=== PATIENT | male | born 1965 | race African-American/Black ===

== ENCOUNTER → 2019-09-12 16:25 | Outpatient (CLI) | payer OTHER, SELFPAY ==
--- NOTE | ~2019-09-12 | XR_ITS ---
EXAMINATION: XR forearm RT 2V DATE: 09/12/2019 16:52 INDICATION: Distal right forearm lump. TECHNIQUE: 2 views of right forearm on 3 radiographs were obtained. COMPARISON: None. FINDINGS: Bone alignment is normal. No fracture. There is mild elbow joint osteoarthritis. There is e nthesophytes at the medial and lateral humeral epicondyles. IMPRESSION: 1. Mild elbow joint osteoarthritis. Reviewed, dictated and finalized at location A. [employer] ASST
== END ==
PROVIDERS: PCP Nurse Practitioner Family; Visit Provider Nurse Practitioner Family
DX: M19.021 Primary osteoarthritis, right elbow (principal)
CPT/HCPCS: 73090

== ENCOUNTER 2019-12-27 11:34 | Observation (INO) | payer OTHER, SELFPAY ==
[2019-12-27] VITALS (7 sets, daily range): BP systolic 105–153; BP diastolic 73–88; PULSE 72–88; RESP 18–20; TEMP 36.2–36.9; O2SAT 99–100; BMI 24.6
--- NOTE | ~2019-12-27 | XR_ITS ---
EXAMINATION: XR chest 1V portable 12/27/2019 12:29 INDICATION: Left-sided facial numbness PROCEDURE: AP portable chest COMPARISON: No prior studies for comparison. FINDINGS: The lungs are clear. The cardiomediastinal silhouette is within normal limits. There are no pleural effusions. There is no pneumothorax suspected. IMPRESSION: 1: NO ACUTE CARDIOPULMONARY DISEASE. Reviewed, dictated and finalized at location A.
--- NOTE | ~2019-12-27 | US_ITS ---
EXAMINATION: US carotid duplex BI DATE: 12/27/2019 17:13 INDICATION: Cerebral infarcts involving the left temporal lobe and left frontoparietal region. TECHNIQUE: Grayscale, color Doppler, and pulsed Doppler images of the cervical carotid arteries were obtained. The degree of vessel stenosis is placed in one of the following categories: normal, <50%, 5 0-69%, >=70% but less than near-occlusion, near-occlusion, or total occlusion. Note that percent sten osis relative to normal distal artery lumen diameter is indirectly measured from velocity measurement s as described by Srinivasan, et al. Radiology 2003; 229:340-346. COMPARISON: Neck CTA 12/27/2019 FINDINGS: RIGHT: The right common carotid artery (CCA) peak systolic velocity (PSV) is 74 cm/s. The right internal car otid artery (ICA) PSV is 57 cm/s. The right ICA end-diastolic velocity (EDV) is 14 cm/s. The right IC A/CCA PSV ratio is 0.8. Grayscale and color Doppler images yield an estimate of <50% diameter reducti on from plaque in the ICA. There is antegrade flow in the right vertebral artery. LEFT: The left CCA PSV is 103 cm/s. The left ICA PSV is 53 cm/s. The left ICA EDV is 17 cm/s. The left ICA/ CCA PSV ratio is 0.5. Grayscale and color Doppler images yield an estimate of 0% diameter reduction f rom plaque in the ICA. There is antegrade flow in the left vertebral artery. IMPRESSION: 1. <50% stenosis in the right internal carotid artery. 2. Normal left internal carotid artery. Reviewed, dictated and finalized at location A.
--- NOTE | ~2019-12-27 | CT_ITS ---
EXAMINATION: CTA brain carotid DATE: 12/27/2019 14:11 CDT INDICATION: Left-sided facial numbness. TECHNIQUE: Computed tomographic angiography (CTA) of the head was performed without and with 100 mL O mnipaque-350 intravenous contrast. CTA of the neck was performed with intravenous contrast. The dose- length product was 1718.52 mGy-cm. Maximum intensity projection and volume rendered 3D-reconstruction s were created by the technologist on a separate workstation. COMPARISON: None. FINDINGS: HEAD CTA: Mild generalized atrophy. There are scattered mild periventricular and subcortical white ma tter changes, most likely related to small vessel ischemic disease (microangiopathy). Chronic left la cunar infarction. Chronic left parietal lobe infarction. No ventriculomegaly or midline shift. Basila r cisterns are patent. No depressed skull fractures. There is intracranial atherosclerosis. There is occlusion of the left middle cerebral artery with collateral vessels noted in the MCA distribution. T he anterior, posterior and right middle cerebral arteries are unremarkable. No evidence for aneurysm. There is atherosclerotic change in the cavernous segments of the carotid arteries. NECK CTA: The common, internal and external carotid arteries are patent. There is gas in the right in ternal jugular vein, likely from injection. No cervical lymphadenopathy. Thyroid gland is unremarkabl e. There is 0% stenosis of the proximal right internal carotid artery relative to normal distal artery l umen diameter (NASCET criteria). There is 0% stenosis of the proximal left internal carotid artery re lative to normal distal artery lumen diameter. 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 Findings likely chronic. 2: Chronic left lacunar and parietal lobe infarctions. 3: No significant stenosis in the internal carotid arteries. Reviewed, dictated and finalized at location A. 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 Findings likely chronic. 2: Chronic left lacunar and parietal lobe infarctions. 3: No significant stenosis in the internal carotid arteries.
--- NOTE | ~2019-12-27 | MR_ITS ---
EXAMINATION: MR brain/brain stem wo/w con DATE: 12/27/2019 20:02 INDICATION: Left facial numbness. Speech deficit. TECHNIQUE: Magnetic resonance imaging (MRI) of the brain and brainstem was performed without and with 15 mL MultiHance intravenous contrast. Sequences included sagittal and axial T1-weighted FSE, axial diffusion-weighted FS EPI, axial T2*-weighted GRE, axial T2-weighted FLAIR Propeller, and axial T2-we ighted Propeller. Postcontrast sequences included axial and coronal T1-weighted FSE. Apparent diffusi on coefficient (ADC) maps were created. COMPARISON: Head CT 12/27/2019 FINDINGS: There are old infarcts involving the left temporal lobe and left frontoparietal region. The re are areas of cystic encephalomalacia in the left frontal lobe deep white matter. There is increase d T2-weighted signal intensity in the left corticospinal tracts in the brainstem, consistent with chr onic Wallerian degeneration. There are areas of nonspecific increased T2-weighted signal intensity in the cerebral white matter and right basal ganglia. There is no acute infarct or intracranial hemorrh age. There is ex vacuo dilatation of left lateral ventricle. The paranasal sinuses are clear. The orb its are normal. The mastoid air cells are normal. IMPRESSION: 1. Old infarcts involving the left frontal, temporal, and parietal lobes. 2. Mild nonspecific cerebral white matter disease and disease of the right basal ganglia, which likel y represents chronic small vessel ischemic disease. Reviewed, dictated and finalized at location A. IMPRESSION: 1. Old infarcts involving the left frontal, temporal, and parietal lobes. 2. Mild nonspecific cerebral white matter disease and disease of the right basa l ganglia, which likely represents chronic small vessel ischemic disease.
--- NOTE | 2019-12-27 11:44 | ECG_ITS ---
Measurements Intervals [place] Rate: 82 P: 56 OR: 149 QRS: -18 QRSD: 93 T: 65 QT: 360 QTc: 423 Interpretive Statements SINUS RHYTHM RSR' IN V1 OR V2, CONSIDER RIGHT VENTRICULAR HYPERTROPHY OR RIGHT VCD BORDERLINE T WAVE ABNORMALITY- HIGH LATERAL LEADS BASELINE ARTIFACT- I, II BORDERLINE ECG Electronically Signed On 12-27-2019 16:13:53 CDT by Son Quinn D.O.
[2019-12-27 11:56] LABS: Basophils Percent Auto 0.2 % (0.2-1.2); Eosinophils Absolute Auto 0.1 K/mm3 (0-0.3); Eosinophils Percent Auto 1.7 % (0-4.4); Hematocrit 43.5 % (42.0-52.0); Hemoglobin 14.5 g/dL (14.0-18.0); Immature Granulocyte Absolute 0.01 K/mm3 (0.00-0.031); Immature Granulocyte Percent A 0.2 % (0-0.5); Lymphocytes Absolute Auto 3.04 K/mm3 (0.9-3.2); Lymphocytes Percent Auto 50.7 % (18.3-44.2); Mean Corpuscular HGB Conc 33.3 g/dl (32-36); Mean Corpuscular Hemoglobin 27.6 pg (26-34); Mean Corpuscular Volume 82.7 fl (80-100); Mean Platelet Volume 9.6 fl (7.4-10.4); Monocytes Absolute Auto 0.4 K/mm3 (0.1-0.6); Monocytes Percent Auto 7.2 % (2.6-8.5); Neutrophils Absolute Auto 2.4 K/mm3 (1.3-6.7); Platelet Count Result 202 k/mm3 (150-375); Red Blood Count 5.26 M/mm3 (4.6-6.20); Red Cell Distribution Width 13.3 % (11.5-14.5)
[2019-12-27 12:05] LABS: INR 1.1; Prothrombin Time 13.4 Seconds (11.1-14.7)
[2019-12-27 12:06] LABS: Partial Thromboplastin Time 24.8 SECONDS (22.3-36.8)
[2019-12-27 12:09] LABS: Blood Urea Nitrogen 10 mg/dL (9-20); Calcium 9.6 mg/dL (8.4-10.2); Carbon Dioxide 27 mmol/L (22-30); Chloride 105 mmol/L (98-107); Estimated CRCL calculation 87 ml/min; Estimated Glomerular Filt Rate > 60; Glucose 125 mg/dL (75-110); Potassium 3.7 mmol/L (3.4-5.0); Sodium 139 mmol/L (137-145)
[2019-12-27 12:20] LABS: Troponin I < 0.012 ng/mL (0.000-0.034)
[2019-12-27] MEDS: SODIUM CHLORIDE 0.9% IV 500 ML 999 ML IV CONT (13:01)
--- NOTE | 2019-12-27 15:05 | ED.GENADULT ---
HPI - General Adult General Chief complaint: Unspecified <DAYA Washburn Last Filed: 12/27/19 15:11> Stated complaint: left sided facial numbness/speech diff <DAYA Washburn Last Filed: 12/27/19 15:11> Time Seen by Provider: 12/27/19 12:40 <DAYA Washburn Last Filed: 12/27/19 15:11> Source: patient <DAYA Washburn Last Filed: 12/27/19 15:11> Mode of arrival: ambulatory <DAYA Washburn Last Filed: 12/27/19 15:11> Limitations: no limitations <DAYA Washburn Last Filed: 12/27/19 15:11> History of Present Illness HPI narrative: Patient is a 54-year-old male who presents to emergency department with family for evaluation of strokelike symptoms that have been present over the last week patient per family has had some changes in his speech patient in May had a stroke was evaluated at [facility]. Patient has been compliant with his medications to include aspirin. Patient denies any fall injury trauma recent illness. Patient has been complaining of some mild neck pain and left temporal parietal headache. Patient lives at home with family and is otherwise resting comfortably upon arrival <DAYA Washburn Last Filed: 12/27/19 15:11> Related Data Home medications: Home Medications Medication Instructions Recorded Confirmed albuterol sulfate INHALATION 08/09/19 aspirin 08/09/19 atorvastatin 08/09/19 lisinopril 08/09/19 memantine mg 08/09/19 metformin mg 08/09/19 methimazole 08/09/19 mirtazapine mg 08/09/19 risperidone mg 08/09/19 trazodone 08/09/19 <DAYA Washburn Last Filed: 12/27/19 15:11> Allergies/adverse reactions: Allergies Allergy/AdvReac Type Severity Reaction Status Date / Time No Known Allergies Allergy Verified 08/09/19 10:45 <DAYA Washburn Last Filed: 12/27/19 15:11> Review of Systems Review of Systems: All systems reviewed & are unremarkable except as noted in HPI and below <DAYA Washburn Last Filed: 12/27/19 15:11> [facility]LY [facility] Past Medical History Medical History: Medical History (Updated 12/27/19 @ 15:10 by Hayden Torres PA-C) CVA (cerebral vascular accident) Hyperthyroidism <Hayden Torres PA-C - Last Filed: 12/27/19 15:11> Social History Social History: Social History (Updated 12/27/19 @ 15:08 by Hayden Torres PA-C) Smoking status: Never smoker Gender identity (if verbalized by the patient): Male <Hayden Torres PA-C - Last Filed: 12/27/19 15:11> Exam Narrative: Exam Narrative: GENERAL: Well-appearing, well-nourished, and in no acute distress. HEAD: Normocephalic, atraumatic. EYES: PERRLA and EOMI. ENT: Nares clear, no rhinorrhea or epistaxis. Mucous membranes moist. Oropharynx without tonsillar hypertrophy exudate or other lesions. NECK: Supple. No adenopathy or masses. No carotid bruits or JVD CHEST: Clear to auscultation. No respiratory distress. No wheezes rales or rhonchi HEART: Regular rate and rhythm. No murmur heard. Normal peripheral pulses. ABDOMEN: Soft, nontender, nondistended EXTREMITIES: Normal range of motion. No edema. SKIN: Warm, dry, no rash. NEURO: No focal deficits. Alert and oriented x3. Cranial nerves II through XII grossly intact. Slightly garbled speech. Normal gyxbjy-jb-hnrs and tuzk-vg-ftjy. Cerebellar intact. Slight weakness on the left in comparison to the right on motor PSYCH: Normal mood and affect. <Hayden Torres PA-C - Last Filed: 12/27/19 15:11> Course Course Emergency Course: Patient in the room at this time resting comfortably in no distress will be given Plavix in the emergency department agreeing to stay in hospital <Hayden Torres PA-C - Last Filed: 12/27/19 15:11> BAND RIPSAW OPERATOR/PA Physician Supervision Attestation for Hayden Torres at 1530. Discussed the case and then saw the patient and his . She said his slurred speech st
[2019-12-27] MEDS: CLOPIDOGREL BISULFATE 75 MG TABLET PO (15:14)
[2019-12-27 15:24] LABS: Thyroid Stimulating Hormone Reflex < 0.015 uIU/mL (0.465-4.68)
--- NOTE | 2019-12-27 16:03 | PC.NURSE ---
This patient, Capo Friedman, was admitted to 2 Medical Room 251-01. Patient/family oriented to hospital policies and general routines including ID bracelet, bed and alarms, visiting hours, pain management, procedures, bathroom and other care routines, personal items, smoking policy, room service/diet, and visiting hours. Valuables list has been completed. Information on how to activate the Rapid Response Team has been discussed. Patient/Family are encouraged to report perceived risks to care and to ask questions if they do not understand what they are told or what they should do.
[2019-12-27 16:11] LABS: Free T4 Free Thyroxine Reflex 1.73 ng/dL (0.78-2.19)
[2019-12-27] MEDS: LACTATED RINGERS 1,000 ML 75 ML IV CONT (16:32)
--- NOTE | 2019-12-27 16:57 | PC.NURSE ---
Call to patient's daughter Ava and left voicemail to clarify patient's health history and review MRI safety screening form. Awaiting call back from daughter at this time.
[2019-12-27 18:15] LABS: Glucose Point of Care 108 (65-105)
--- NOTE | 2019-12-27 18:23 | PC.NURSE ---
Call to to update her on plan of care, clarified health history, and reviewed MRI screen form. All questions and concerns answered at this time.
[2019-12-27] MEDS: FAMOTIDINE 20 MG/2 ML VIAL IV PUSH (20:24)
[2019-12-27 20:35] LABS: Glucose Point of Care 117 (65-105)
--- NOTE | 2019-12-27 21:22 | PM.IMHP ---
H&P: HPI History of Present Illness Chief complaint: CVA Narrative: Capo Friedman is a 54 year old male who has had a past medical history of having a CVA. The patient stated that he had some right-sided weakness from his last stroke. He went to [facility] the last time. The patient is having difficulty talking. He has slow speech. He is having stroke-like symptoms that have been present over the last week. The patient did have some changes in his speech in May when he had a stroke. He has been taking aspirin daily. He also has a history of hyperthyroidism as Brien if he was taking his Tapazole and he really did not know. The patient was complaining of some mild neck pain and left temporoparietal headache earlier. He lives with his . Head and neck CTA was read as occlusion of the left middle cerebral artery with collateral vessels noted in the MCA distribution findings likely chronic. Chronic left lacunar and partial lobe infarcts. No significant stenosis in the internal carotid arteries. ED provider called [facility] neurology and it was recommended that the patient be placed on Plavix. Review of Systems Review of Systems: All systems reviewed & are unremarkable except as noted in HPI and below Constitutional: Constitutional: Reports as per HPI and Reports no additional constitutional complaints Eyes: Eyes: Reports as per HPI and Reports no additional eye complaints ENT: Reports system reviewed and no additional complaints, except as documented and Reports Normal hearing present Cardiovascular: Cardiovascular: Reports no additional cardiovascular complaints Respiratory: Respiratory: Reports no additional respiratory complaints and Reports no additional respiratory complaints Gastrointestinal: Gastrointestinal: Reports as per HPI and Reports no additional gastrointestinal complaints Musculoskeletal: Musculoskeletal: Reports no additional musculoskeletal complaints Integumentary/Breasts: Skin/Breast: Reports system reviewed and no additional complaints, except as docu and Reports as per HPI Neurologic: Reports system reviewed and no additional complaints, except as documented, Reports as per HPI and Reports Normal hearing present Psychiatric: Psychiatric: Reports no additional psychiatric complaints and Reports as per HPI Endocrine: Endocrine: Reports no additional endocrine complaints Hematologic/Lymphatic: Hematologic/Lymphatic: Reports no additional hematologic/lymphatic complaints Allergic/Immunologic: Allergic/Immunologic: Reports no additional allergic/immunologic complaints [facility] Past Medical History Medical History (Updated 12/27/19 @ 21:27 by Angelika Cali NP) CVA (cerebral vascular accident) Depression with anxiety DM2 (diabetes mellitus, type 2) Hyperlipidemia Hyperthyroidism Surgical History Surgical History (Updated 12/27/19 @ 21:27 by Angelika Cali NP) No pertinent past surgical history Family History Family History Son No problems noted. Sibling Asthma Grandparent Cerebrovascular accident Sibling Hypertension Social History Social History (Updated 12/27/19 @ 21:29 by Angelika Cali NP) Social History: The patient lives with his and he is disabled. He has 2 children. Patient quit smoking when he had his stroke in May. His is the durable power real estate attorney for healthcare and he is a full code. He denies any marijuana or drug use. Smoking packs per day: 1.5 Smoking cigarettes per day: 30.0 Years smoked: 35 Smoking pack-years: 52.50 Smoking status: Former smoker Tobacco type: cigarettes Alcohol intake: former Drinks per week: 5 Substance use type: does not use Living arrangements: with family Occupation/Education: other Gender identity (if verbalized by the patient): Male Spiritual care concerns: No Meds Home Medications and Allergie
[2019-12-27] MEDS: risperiDONE 1 MG TABLET PO (22:57)
[2019-12-27] MEDS: MIRTAZAPINE 7.5 MG TABLET PO (22:57)
[2019-12-28] VITALS (10 sets, daily range): BP systolic 121–126; BP diastolic 68–81; PULSE 70–84; RESP 17–18; TEMP 36.7–37.2; O2SAT 99–100
[2019-12-28 05:24] LABS: Basophils Percent Auto 0.2 % (0.2-1.2); Eosinophils Absolute Auto 0.1 K/mm3 (0-0.3); Eosinophils Percent Auto 2.3 % (0-4.4); Hematocrit 37.7 % (42.0-52.0); Hemoglobin 12.5 g/dL (14.0-18.0); Immature Granulocyte Absolute 0.01 K/mm3 (0.00-0.031); Immature Granulocyte Percent A 0.2 % (0-0.5); Lymphocytes Absolute Auto 3.08 K/mm3 (0.9-3.2); Lymphocytes Percent Auto 53.8 % (18.3-44.2); Mean Corpuscular HGB Conc 33.2 g/dl (32-36); Mean Corpuscular Hemoglobin 27.5 pg (26-34); Mean Corpuscular Volume 82.9 fl (80-100); Mean Platelet Volume 9.5 fl (7.4-10.4); Monocytes Absolute Auto 0.5 K/mm3 (0.1-0.6); Monocytes Percent Auto 8.2 % (2.6-8.5); Neutrophils Percent Auto 35.3 % (45.5-73.1); Platelet Count Result 172 k/mm3 (150-375); Red Blood Count 4.55 M/mm3 (4.6-6.20); Red Cell Distribution Width 13.2 % (11.5-14.5); White Blood Count 5.7 K/mm3 (4.5-10.0)
[2019-12-28 05:31] LABS: Blood Urea Nitrogen 6 mg/dL (9-20); Carbon Dioxide 30 mmol/L (22-30); Chloride 107 mmol/L (98-107); Estimated CRCL calculation 109 ml/min; Estimated Glomerular Filt Rate > 60; Glucose 79 mg/dL (75-110); Potassium 3.9 mmol/L (3.4-5.0); Sodium 140 mmol/L (137-145)
[2019-12-28 05:35] LABS: Hemoglobin A1C 5.8 % (<5.7)
--- NOTE | 2019-12-28 06:00 | ECHO_ITS ---
Patient Info Name: Capo Friedman Age: 54 years : 1965 Gender: Male Ht: 70 in Wt: 171 lbs BSA: 1.96 m2 HR: 77 bpm BP: 105 / 80 mmHg Heart Rhythm: Sinus Rhythm Technical Quality: Good Exam Date: 12/28/2019 2:56 PM Exam Location: [facility] Patient Status: Outpatient Admit Date: 12/27/2019 Staff Ordering Physician: Hayden Torres PA-C Steam Conditioning Operator: Erasto Bustillo RDCS, RT Attending Provider: Torri Boyd PA-C Referring Physician: Brian JOSHUA; Exam Type: CA echo doppler color flow Study Info Indications I63.219 - Cerebral infarction due to unspecified occlusion or stenosis of unspecified vertebral arteries Complete two-dimensional, color flow and Doppler transthoracic echocardiogram is performed. Summary 1. Right ventricular chamber dimension is mildly enlarged. 2. There is mild aortic valve regurgitation. 3. Left ventricular chamber dimension is normal. 4. Left ventricular systolic function is normal, estimated at 65-70%. 5. There is no increased left ventricular wall thickness. 6. The left ventricular diastolic function is abnormal. 7. Global longitudinal strain is normal at -18 %. 8. Atrial septum is grossly normal with this is not a definitive study for analysis of shunting. Left Ventricle Left ventricular chamber dimension is normal. Left ventricular systolic function is normal, estimated at 65-70%. There is no increased left ventricular wall thickness. The left ventricular diastolic function is abnormal. Global longitudinal strain is normal at -18 %. Right Ventricle Right ventricular chamber dimension is mildly enlarged. Right ventricular systolic function is normal. Left Atria Left atrial chamber dimension is normal. Right Atria Right atrial chamber dimension is normal. Atrial Septum Intact interatrial septum visualized by color flow imaging. Atrial septum is grossly normal with this is not a definitive study for analysis of shunting. Aortic Valve The aortic valve is trileaflet. There is mild aortic valve sclerosis. There is no aortic valve stenosis. There is mild aortic valve regurgitation. Pulmonic Valve The pulmonic valve is not well visualized. There is no pulmonic valve stenosis. There is trace pulmonic regurgitation. Mitral Valve The mitral valve has normal leaflets. There is no mitral valve stenosis. There is trace mitral valve regurgitation. Tricuspid Valve The tricuspid valve leaflets are normal. There is no significant tricuspid valve stenosis. There is trace tricuspid valve regurgitation. Pericardium/Pleural The pericardium appears normal. There is no pericardial effusion. Inferior Vena Cava Normal inferior vena cava with >50% collapse upon inspiration consistent with normal right atrial pressure, 5 mmHg. Aorta The aortic root size at the sinus of Valsalva is mildly dilated. Left Ventricular Outflow Tract Name Value Normal LVOT 2D LVOT Diameter 2.0 cm LVOT Doppler LVOT Peak Gradient 5 mmHg LVOT Mean Gradient 2 mmHg LVOT VTI
[2019-12-28] MEDS: LACTATED RINGERS 1,000 ML 75 ML IV CONT (06:51)
[2019-12-28 08:35] LABS: Glucose Point of Care 70 (65-105)
[2019-12-28] MEDS: ATORVASTATIN 40 MG TABLET PO (09:04)
[2019-12-28] MEDS: CLOPIDOGREL BISULFATE 75 MG TABLET PO (09:04)
[2019-12-28] MEDS: methiMAzole 5 MG TAB 10 MG PO ×2 (09:04→12:28)
[2019-12-28] MEDS: FAMOTIDINE 20 MG/2 ML VIAL IV PUSH ×2 (09:05→20:22)
[2019-12-28] MEDS: TRAZODONE HCL 50 MG TABLET PO (09:05)
[2019-12-28 11:57] LABS: Glucose Point of Care 97 (65-105)
--- NOTE | 2019-12-28 14:44 | PM.IMPN ---
Progress Note: A&P Assessment and Plan (1) Expressive aphasia: Code(s): R47.01 - Aphasia Status: Acute Assessment and Plan: Patient presented with worsening issues with his speech. He had a prior stroke in May 2019. 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 Findings likely chronic. Chronic left lacunar and parietal lobe infarctions. No significant stenosis in the internal carotid arteries. MRI showed Old infarcts involving the left frontal, temporal, and parietal lobes. Mild nonspecific cerebral white matter disease and disease of the right basal ganglia, which likely represents chronic small vessel ischemic disease. Carotid Dopplers show normal left internal carotid artery and less than 50% stenosis of the right internal carotid artery. The emergency room physician called [facility] about the patient's symptoms and they recommended starting him on Plavix. PT/OT evaluated the patient and feel he can benefit from home health upon discharge. Speech therapy have been consulted for his slurred, slow and stuttering speech. Echocardiogram is still pending. Will continue monitoring the patient's symptoms. But there is no signs of acute CVA at this time. (2) History of CVA (cerebrovascular accident): Code(s): Z86.73 - Personal history of transient ischemic attack (TIA), and cerebral infarction without residual deficits Status: Acute Assessment and Plan: History of CVA in May 2019. He was seen at [facility]. (3) Hyperlipidemia: Code(s): E78.5 - Hyperlipidemia, unspecified Status: Chronic Assessment and Plan: Continue statin. Will check a fasting lipid panel in the morning. (4) Hyperthyroidism: Code(s): E05.90 - Thyrotoxicosis, unspecified without thyrotoxic crisis or storm Status: Acute Assessment and Plan: The patient's TSH was very low less than 0.015, free T4 was normal, and total T3 was 2.10. This is consistent with the patient not taking his medication as prescribed 3 times a day. Will have him check a TSH with reflux and 4 weeks and follow-up with his aligner (5) Depression with anxiety: Code(s): F41.8 - Other specified anxiety disorders Status: Chronic Assessment and Plan: Continue with trazodone, risperidone, and mirtazapine. (6) DM2 (diabetes mellitus, type 2): Code(s): E11.9 - Type 2 diabetes mellitus without complications Status: Chronic Assessment and Plan: I am holding his metformin and doing sliding scale insulin will check A1c. Serum glucose this morning was 70. Continue monitoring glucose. Hypoglycemia protocol in place. Time Spent With Patient Time with patient: 25 - 35 minutes Subjective Date/time seen: 12/28/19 14:44 Interval history: Date of service 12/28/2019: The patient is difficult to understand secondary to prior stroke and expressive aphasia. The patient stated he had a headache yesterday to his left temporal lobe but is resolved now. He states his speech is worse than what it was back in April when he had his stroke. He denies any chest pain, shortness of breath, cough, fever, chills, abdominal pain, or any other symptoms at this time. Review of Systems Review of Systems: ROS unobtainable: Yes unobtainable due to medical condition Exam Narrative: Exam Narrative: General: 54-year-old man sitting up in bed finishing his lunch. Appears comfortable. In no acute distress. Skin: No jaundice or cyanosis. Good skin turgor. Neck: Full range of motion. Supple. No tenderness in the midl
[2019-12-28 17:11] LABS: Glucose Point of Care 119 (65-105)
[2019-12-28] MEDS: methiMAzole 10 MG TAB PO (17:28)
[2019-12-28] MEDS: risperiDONE 1 MG TABLET PO (20:22)
[2019-12-28] MEDS: MIRTAZAPINE 7.5 MG TABLET PO (20:22)
[2019-12-28 20:40] LABS: Glucose Point of Care 145 (65-105)
[2019-12-29] VITALS: PULSE 76
[2019-12-29 04:00] VITALS: PULSE 81
[2019-12-29 05:03] LABS: Blood Urea Nitrogen 7 mg/dL (9-20); Calcium 9.2 mg/dL (8.4-10.2); Carbon Dioxide 30 mmol/L (22-30); Chloride 107 mmol/L (98-107); Cholesterol 126 mg/dL (0-200); Estimated CRCL calculation 109 ml/min; Estimated Glomerular Filt Rate > 60; Glucose 111 mg/dL (75-110); HDL Direct 43 mg/dL; Sodium 141 mmol/L (137-145); Triglycerides 51 mg/dL (<150)
[2019-12-29 05:13] LABS: LDL Cholesterol Direct 63 mg/dL
[2019-12-29 06:00] VITALS: BP 134/88; PULSE 72; RESP 18; TEMP 36.5; O2SAT 100
[2019-12-29 08:00] VITALS: PULSE 96
[2019-12-29] MEDS: CLOPIDOGREL BISULFATE 75 MG TABLET PO (08:32)
[2019-12-29] MEDS: methiMAzole 10 MG TAB PO ×2 (08:33→12:49)
[2019-12-29] MEDS: ATORVASTATIN 40 MG TABLET PO (08:33)
[2019-12-29] MEDS: FAMOTIDINE 20 MG/2 ML VIAL IV PUSH (08:33)
[2019-12-29] MEDS: TRAZODONE HCL 50 MG TABLET PO (08:33)
[2019-12-29 08:35] LABS: Glucose Point of Care 70 (65-105)
--- NOTE | 2019-12-29 09:17 | PM.DS ---
DS: Admitting Diagnosis Admitting Diagnosis Admitting Diagnosis: Cerebral infarction, unspecified DS: Discharge Diagnosis Discharge Diagnosis (1) Expressive aphasia: Code(s): R47.01 - Aphasia Status: Acute Assessment and Plan: Patient presented with worsening issues with his speech. He had a prior stroke in May 2019. 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 Findings likely chronic. Chronic left lacunar and parietal lobe infarctions. No significant stenosis in the internal carotid arteries. MRI showed Old infarcts involving the left frontal, temporal, and parietal lobes. Mild nonspecific cerebral white matter disease and disease of the right basal ganglia, which likely represents chronic small vessel ischemic disease. Carotid Dopplers show normal left internal carotid artery and less than 50% stenosis of the right internal carotid artery. Echocardiogram showed Right ventricular chamber dimension is mildly enlarged. There is mild aortic valve regurgitation. Left ventricular systolic function is normal, estimated at 65-70%. There is no increased left ventricular wall thickness. The left ventricular diastolic function is abnormal. Atrial septum is grossly normal with this is not a definitive study for analysis of shunting. The emergency room physician called [facility] about the patient's symptoms and they recommended starting him on Plavix. PT/OT evaluated the patient and feel he can benefit from home health upon discharge. Speech therapy was consulted and they do not feel like that patient is aspirating and he can stay on a regular diet. They will also work with him as an outpatient with speech. The patient is stable from a medical standpoint at this time to continue Aspirin and Plavix to prevent CVAs in the future. Patient and family understand and agree with the plan. All questions answered. (2) History of CVA (cerebrovascular accident): Code(s): Z86.73 - Personal history of transient ischemic attack (TIA), and cerebral infarction without residual deficits Status: Acute Assessment and Plan: History of CVA in May 2019. He was seen at [facility]. (3) Hyperlipidemia: Code(s): E78.5 - Hyperlipidemia, unspecified Status: Chronic Assessment and Plan: Continue statin. Fasting lipid panel was normal this morning. (4) Hyperthyroidism: Code(s): E05.90 - Thyrotoxicosis, unspecified without thyrotoxic crisis or storm Status: Acute Assessment and Plan: The patient's TSH was very low less than 0.015, free T4 was normal, and total T3 was 2.10. This is consistent with the patient not taking his medication as prescribed 3 times a day. Will have him check a TSH with reflux and 4 weeks and follow-up with his blocker heated metal forms (5) Depression with anxiety: Code(s): F41.8 - Other specified anxiety disorders Status: Chronic Assessment and Plan: Continue with trazodone, risperidone, and mirtazapine. (6) DM2 (diabetes mellitus, type 2): Code(s): E11.9 - Type 2 diabetes mellitus without complications Status: Chronic Assessment and Plan: I am holding his metformin and doing sliding scale insulin. Hgb A1c was 5.8% well controlled. Serum glucose this morning was 70. Will have the patient and family check glucose 5 times per day and monitor for hypoglycemia. DS: Summary Hospital Course Reason for hospitalization: The patient is a 54 year old man with a history of CVA in May 2019 with expressive aphasia and right sided residual weakness, who presented to
[2019-12-29 12:00] VITALS: PULSE 91
[2019-12-29 12:05] LABS: Glucose Point of Care 99 (65-105)
--- NOTE | 2019-12-29 13:39 | PC.NURSE ---
discharge instructions faxed to [facility]
== END 2019-12-29 13:45 | disposition home health service (06) ==
LOC: ANHED 15:24 → ANH2MED 18:47
PROVIDERS: Emergency Medicine Emergency Medical Services; Nurse Practitioner; Admitting Provider Internal Medicine; Emergency Provider Emergency Medicine; PCP Nurse Practitioner Family; Visit Provider Physician Assistant
DX: R47.01 Aphasia (principal); I66.02 Occlusion and stenosis of left middle cerebral artery; Z86.73 Personal history of transient ischemic attack (TIA), and cerebral infarction without residual deficits; E78.5 Hyperlipidemia, unspecified; E05.90 Thyrotoxicosis, unspecified without thyrotoxic crisis or storm; F41.8 Other specified anxiety disorders; E11.9 Type 2 diabetes mellitus without complications; Z87.891 Personal history of nicotine dependence
CPT/HCPCS: 36415; 70496; 70498; 70553; 71045; 80048; 80061; 83036; 84439; 84443; 84480; 84484; 85025; 85610; 85730; 87081; 87880; 92523; 92610; 93005; 93306; 93880; 96361; 96365; 96374; 96375; 96376; 97110; 97161; 97165; 97530; 99285; A9270; A9577; G0378; G0379; J0131; J7040; J7120; Q9967

== ENCOUNTER 2022-09-25 12:43 | Emergency (ER) | payer MEDICARE, MEDICAID, SELFPAY ==
--- NOTE | 2022-09-25 12:51 | ED.URI ---
HPI - URI/Sore Throat General Chief Complaint: Upper Respiratory Infection Stated Complaint: Cough Time Seen by Provider: 09/25/22 12:52 Source: patient and RN notes reviewed Mode of arrival: ambulatory Limitations: no limitations History of Present Illness HPI Narrative: 57-year-old male presented for complaint of cough and sinus pressure for 2 weeks. He endorses a brief improvement in symptoms. Cough is productive yellow sputum. He has been taking multiple [id number]-[id number] medications without significant relief. He denies shortness of breath, wheezing, nausea, vomiting, lethargy, fevers or chills. MD elicited complaint: cough Related Data Home Medications Medication Instructions Recorded Confirmed albuterol sulfate 90 mcg/actuation 2 puff inhalation Q4H PRN 08/09/19 12/27/19 aerosol inhaler Shortness Of Breath aspirin 81 mg chewable tablet 81 mg PO DAILY 08/09/19 12/27/19 atorvastatin 40 mg tablet 40 mg PO DAILY 08/09/19 12/27/19 metformin 500 mg tablet 500 mg PO BID 08/09/19 12/27/19 methimazole 5 mg tablet 10 mg PO TID 08/09/19 12/27/19 mirtazapine 7.5 mg tablet 7.5 mg PO HS 08/09/19 12/27/19 risperidone 1 mg tablet 1 mg PO HS 08/09/19 12/27/19 trazodone 100 mg tablet 50 mg PO DAILY 08/09/19 12/27/19 apixaban 5 mg tablet (Eliquis) mg 09/25/22 tadalafil 20 mg tablet mg 09/25/22 triamcinolone acetonide 0.1 % topical 09/25/22 topical ointment Allergies Allergy/AdvReac Type Severity Reaction Status Date / Time No Known Allergies Allergy Verified 09/25/22 12:48 Review of Systems Review of Systems: CONSTITUTIONAL: Denies malaise, chills, sweats, fever EYES: Denies visual changes, redness, or discharge ENT: Reports rhinorrhea, congestion, sinus pain, denies otalgia, sore throat CARDIOVASCULAR: Denies chest pain, palpitations, edema RESPIRATORY: Reports cough, post nasal drainage. Denies dyspnea GASTROINTESTINAL: Denies abdominal pain, nausea, vomiting, diarrhea SKIN: Denies rash or itching MUSCULOSKELETAL: Denies myalgia PMFSH Past Medical History Medical History CVA (cerebral vascular accident) Depression with anxiety DM2 (diabetes mellitus, type 2) Hyperlipidemia Hyperthyroidism Surgical History Surgical History No pertinent past surgical history Family History Family History Son No problems noted. Sibling Asthma Grandparent Cerebrovascular accident Sibling Hypertension Social History Social History Social History: The patient lives with his and he is disabled. He has 2 children. Patient quit smoking when he had his stroke in May. His is the durable power insurance attorney for healthcare and he is a full code. He denies any marijuana or drug use. Smoking packs per day: 1.5 Smoking cigarettes per day: 30.0 Years smoked: 35 Smoking pack-years: 52.50 Smoking status: Former smoker Tobacco type: cigarettes Alcohol intake: former Drinks per week: 5 Substance use type: does not use Living arrangements: with family Occupation/Education: other Gender identity (if verbalized by the patient): Male Spiritual care concerns: No Exam Narrative: GENERAL: mildly Ill-appearing, nontoxic no acute distress. HEAD: Normocephalic EYES: PERRLA, conjunctivae clear ENT: Mucous membranes moist. TM pearly osorio with dull light reflex bilaterally; no tragal tenderness. Oropharynx erythematous without lesions or exudate NECK: Supple. No lymphadenopathy CHEST: Clear to auscultation, breath sounds equal. No wheezing, rhonchi, rales, or stridor. No respiratory distress, speaks in full sentences. HEART: Regular rate and rhythm. No murmur heard. SKIN: Warm, dry, no rash. NEURO: Alert and oriented x3. PSYCH: Normal mood and affect Course Co
[2022-09-25 12:54] VITALS: BP 152/85; PULSE 76; RESP 16; TEMP 36.2; O2SAT 98
== END 2022-09-25 13:05 | disposition home or self-care (01) ==
PROVIDERS: Emergency Provider Nurse Practitioner Family; PCP Nurse Practitioner Family
DX: J06.9 Acute upper respiratory infection, unspecified (principal); E11.9 Type 2 diabetes mellitus without complications; E78.5 Hyperlipidemia, unspecified; Z86.73 Personal history of transient ischemic attack (TIA), and cerebral infarction without residual deficits; Z79.01 Long term (current) use of anticoagulants; Z87.891 Personal history of nicotine dependence
CPT/HCPCS: 99213; G0463

== ENCOUNTER → 2022-10-13 14:20 | Outpatient (CLI) | payer MEDICARE, MEDICAID, SELFPAY ==
--- NOTE | ~2022-10-13 | XR_ITS ---
EXAMINATION: XR chest 2V 10/13/2022 14:36 INDICATION: Cough PROCEDURE: 2 view chest COMPARISON: 12/27/2019 FINDINGS: The lungs are clear. The cardiomediastinal silhouette is within normal limits. There are no pleural effusions. There is no pneumothorax suspected. IMPRESSION: 1: NO ACUTE CARDIOPULMONARY DISEASE. Reviewed, dictated and finalized at location A.
== END ==
PROVIDERS: PCP Nurse Practitioner Family; Visit Provider Nurse Practitioner Family
DX: R05.9 Cough, unspecified (principal)
CPT/HCPCS: 71046

== ENCOUNTER 2023-05-03 09:09 | Emergency (ER) | payer OTHER, SELFPAY ==
[2023-05-03 09:53] VITALS: BP 165/98; PULSE 84; RESP 20; TEMP 37; O2SAT 100
--- NOTE | 2023-05-03 10:32 | ED.URI ---
HPI - URI/Sore Throat General Chief Complaint: Upper Respiratory Infection Stated Complaint: cold,sinus issue Time Seen by Provider: 05/03/23 09:14 Source: patient Mode of arrival: ambulatory Limitations: no limitations History of Present Illness HPI Narrative: 58-year-old male presents to [facility] with complaints of 2 week history of sinus pressure, nasal congestion, runny nose. patient denies fever, body aches, chills, nausea vomiting or diarrhea. Patient has been taking [id number] sinus and allergy medication with little relief. Patient denies sick contacts. Patient denies recent travel. MD elicited complaint: cough, rhinorrhea, nasal congestion and sinus pain Onset (ago): week(s) (2) Description of mucous: clear Able to tolerate fluids by mouth: Yes Exacerbating factors: nothing Associated symptoms: denies other symptoms Treatments prior to arrival: cold medicine Related Data Home Medications Medication Instructions Recorded Confirmed albuterol sulfate 90 mcg/actuation 2 puff inhalation Q4H PRN 08/09/19 12/27/19 aerosol inhaler Shortness Of Breath aspirin 81 mg chewable tablet 81 mg PO DAILY 08/09/19 12/27/19 atorvastatin 40 mg tablet 40 mg PO DAILY 08/09/19 12/27/19 metformin 500 mg tablet 500 mg PO BID 08/09/19 12/27/19 methimazole 5 mg tablet 10 mg PO TID 08/09/19 12/27/19 mirtazapine 7.5 mg tablet 7.5 mg PO HS 08/09/19 12/27/19 risperidone 1 mg tablet 1 mg PO HS 08/09/19 12/27/19 trazodone 100 mg tablet 50 mg PO DAILY 08/09/19 12/27/19 apixaban 5 mg tablet (Eliquis) mg 09/25/22 tadalafil 20 mg tablet mg 09/25/22 triamcinolone acetonide 0.1 % topical 09/25/22 topical ointment Allergies Allergy/AdvReac Type Severity Reaction Status Date / Time No Known Allergies Allergy Verified 09/25/22 12:48 Review of Systems Constitutional: Constitutional: Denies chills, Denies fatigue, Denies fever(s) and Denies weakness ENT: Denies dizziness, Denies epistaxis and Reports nasal congestion Comments: Sinus pressure, runny nose Cardiovascular: Cardiovascular: Denies chest pain Respiratory: Respiratory: Reports cough, Denies dyspnea and Denies wheezing Gastrointestinal: Gastrointestinal: Denies diarrhea, Denies nausea and Denies vomiting Integumentary/Breasts: Skin/Breast: Denies erythema, Denies rash and Denies skin ulcer Neurologic: Denies dizziness, Denies syncope and Denies headache(s) [facility] Past Medical History Medical History CVA (cerebral vascular accident) Depression with anxiety DM2 (diabetes mellitus, type 2) Hyperlipidemia Hyperthyroidism Surgical History Surgical History No pertinent past surgical history Family History Family History Son No problems noted. Sibling Asthma Grandparent Cerebrovascular accident Sibling Hypertension Social History Social History Social History: The patient lives with his and he is disabled. He has 2 children. Patient quit smoking when he had his stroke in May. His is the durable power contracts attorney for healthcare and he is a full code. He denies any marijuana or drug use. Smoking packs per day: 1.5 Smoking cigarettes per day: 30.0 Years smoked: 35 Smoking pack-years: 52.50 Smoking status: Former smoker Tobacco type: cigarettes Alcohol intake: former Drinks per week: 5 Substance use type: does not use Living arrangements: with family Occupation/Education: other Gender identity (if verbalized by the patient): Male Spiritual care concerns: No Comments At time of signature, I agree with nursing past medical, surgical, social and family history. There is no relevant family history pertinent to the presenting complaint. Exam Const: General: healthy appearing and
== END 2023-05-03 11:16 | disposition home or self-care (01) ==
PROVIDERS: Emergency Provider Nurse Practitioner Family; PCP Nurse Practitioner Family
DX: J32.9 Chronic sinusitis, unspecified (principal); E11.9 Type 2 diabetes mellitus without complications; E78.5 Hyperlipidemia, unspecified; Z86.73 Personal history of transient ischemic attack (TIA), and cerebral infarction without residual deficits; Z87.891 Personal history of nicotine dependence
CPT/HCPCS: 99213; G0463

== ENCOUNTER 2023-10-26 09:13 | Emergency (ER) | payer OTHER, SELFPAY ==
--- NOTE | ~2023-10-26 | XR_ITS ---
Clinical Indication: Cough PA and lateral views of the chest: Comparison: None Findings: The lungs are clear, without evidence of focal consolidation or pleural effusion. Cardiome diastinal silhouette is unremarkable, aside from a loop recorder. Bones and soft tissues are unremark able. Impression: Clear lungs. Reviewed, dictated and finalized at location . Impression: Clear lungs.
--- NOTE | 2023-10-26 09:16 | ED.RECABL ---
HPI - Recheck/Abnormal Lab/Rx General Chief Complaint: Upper Respiratory Infection Stated Complaint: Meds Ref-Fill Time Seen by Provider: 10/26/23 09:15 Source: patient Mode of arrival: ambulatory Limitations: no limitations History of Present Illness HPI narrative: Capo is a 58-year-old male patient presenting to the clinic today with request for a medication refill. He reports he has also been having nasal congestion and coughing up brown sputum for the past month. Does report nasal congestion and sinus pressure. Denies any known fever or chills. Denies any shortness of breath or chest pain. Related Data Home Medications Medication Instructions Recorded Confirmed albuterol sulfate 90 mcg/actuation 2 puff inhalation Q4H PRN 08/09/19 10/26/23 aerosol inhaler Shortness Of Breath aspirin 81 mg chewable tablet 81 mg PO DAILY 08/09/19 10/26/23 atorvastatin 40 mg tablet 40 mg PO DAILY 08/09/19 10/26/23 metformin 500 mg tablet 500 mg PO BID 08/09/19 10/26/23 methimazole 5 mg tablet 10 mg PO TID 08/09/19 10/26/23 mirtazapine 7.5 mg tablet 7.5 mg PO HS 08/09/19 10/26/23 risperidone 1 mg tablet 1 mg PO HS 08/09/19 10/26/23 trazodone 100 mg tablet 50 mg PO DAILY 08/09/19 10/26/23 apixaban 5 mg tablet (Eliquis) 5 mg PO DAILY 09/25/22 10/26/23 tadalafil 20 mg tablet 20 mg PO DAILY 09/25/22 10/26/23 triamcinolone acetonide 0.1 % 1 applic topical DAILY 09/25/22 10/26/23 topical ointment Allergies Allergy/AdvReac Type Severity Reaction Status Date / Time No Known Allergies Allergy Verified 10/26/23 09:17 Review of Systems Review of Systems: Pertinent positives per HPI. Patient denies any fever, chills, rash, headache, visual changes, dizziness, sore throat, shortness of breath, chest pain, palpitations, nausea, vomiting, diarrhea, constipation, abdominal pain, or any urinary issues. PMFSH Past Medical History Medical History CVA (cerebral vascular accident) Depression with anxiety DM2 (diabetes mellitus, type 2) Hyperlipidemia Hyperthyroidism Surgical History Surgical History No pertinent past surgical history Family History Family History Son No problems noted. Sibling Asthma Grandparent Cerebrovascular accident Sibling Hypertension Social History Social History Social History: The patient lives with his and he is disabled. He has 2 children. Patient quit smoking when he had his stroke in May. His is the durable power common[employer] attorney for healthcare and he is a full code. He denies any marijuana or drug use. Smoking packs per day: 1.5 Smoking cigarettes per day: 30.0 Years smoked: 35 Smoking pack-years: 52.50 Smoking status: Former smoker Tobacco type: cigarettes Alcohol intake: former Drinks per week: 5 Substance use type: does not use Living arrangements: with family Occupation/Education: other Gender identity (if verbalized by the patient): Male Spiritual care concerns: No Comments At the time of my signature, I reviewed and agree with the nursing past medical, surgical, social, and family history. There is no relevant family history pertinent to the patient complaint. Exam Narrative: General: Well-developed, well nourished, in no apparent distress Head: Normocephalic, atraumatic Eyes: Pupils equally round and reactive to light bilaterally, EOM intact, sclera and conjunctive clear, no discharge, lids normal Ears: TMs intact and clear, ear canals clear, no drainage, grossly hearing normal. Nose: Nares patent, clear nasal discharge, moderate inflammation, frontal and maxillary sinus tenderness. Mouth: Oropharynx without lesions or masses, good dentition, MMM. Neck: Supple, trachea midline, no enlargement of anter
[2023-10-26 09:25] VITALS: BP 146/84; PULSE 83; RESP 16; TEMP 37.1; O2SAT 99
== END 2023-10-26 10:00 | disposition home or self-care (01) ==
PROVIDERS: Emergency Provider Nurse Practitioner Family; PCP Nurse Practitioner Family
DX: J01.90 Acute sinusitis, unspecified (principal); E11.9 Type 2 diabetes mellitus without complications; Z79.84 Long term (current) use of oral hypoglycemic drugs; E78.5 Hyperlipidemia, unspecified; E05.90 Thyrotoxicosis, unspecified without thyrotoxic crisis or storm; Z86.73 Personal history of transient ischemic attack (TIA), and cerebral infarction without residual deficits; Z79.82 Long term (current) use of aspirin; Z79.01 Long term (current) use of anticoagulants
CPT/HCPCS: 71046; 99213; G0463

== ENCOUNTER 2025-02-08 12:37 | Emergency (ER) | payer MEDICARE, SELFPAY ==
--- NOTE | 2025-02-08 12:38 | ED_ITS ---
HPI - URI/Sore Throat General Chief Complaint: Upper Respiratory Infection Stated Complaint: Sinus Time Seen by Provider: 02/08/25 12:38 Source: patient Mode of arrival: ambulatory Limitations: no limitations History of Present Illness HPI Narrative: Patient is a 59-year-old male who presents with 2 weeks of sinus congestion, pressure. Also having mild sore throat, cough and fatigue. Denies any fever, chills, nausea vomiting, diarrhea. Has use [id number] medication or no relief. Related Data Home Medications ?Medication ?Instructions ?Recorded ?Confirmed ?Last Taken ?Type albuterol sulfate 90 mcg/actuation 2 puff inhalation Q4H PRN 08/09/19 10/26/23 Unknown History aerosol inhaler Shortness Of Breath aspirin 81 mg chewable tablet 81 mg PO DAILY 08/09/19 10/26/23 Unknown History atorvastatin 40 mg tablet 40 mg PO DAILY 08/09/19 10/26/23 Unknown History metformin 500 mg tablet 500 mg PO BID 08/09/19 10/26/23 Unknown History methimazole 5 mg tablet 10 mg PO TID 08/09/19 10/26/23 Unknown History mirtazapine 7.5 mg tablet 7.5 mg PO HS 08/09/19 10/26/23 Unknown History risperidone 1 mg tablet 1 mg PO HS 08/09/19 10/26/23 Unknown History trazodone 100 mg tablet 50 mg PO DAILY 08/09/19 10/26/23 Unknown History apixaban 5 mg tablet (Eliquis) 5 mg PO BID 09/25/22 10/26/23 Unknown History tadalafil 20 mg tablet 20 mg PO DAILY 09/25/22 10/26/23 Unknown History triamcinolone acetonide 0.1 % 1 applic topical DAILY 09/25/22 10/26/23 Unknown History topical ointment montelukast 10 mg tablet 10 mg PO DAILY 10/26/23 10/26/23 Unknown History Allergies Allergy/AdvReac Type Severity Reaction Status Date / Time azithromycin AdvReac Mild Nausea Verified 02/08/25 12:57 Review of Systems Review of Systems: All systems reviewed & are unremarkable except as noted in HPI and below Constitutional: Constitutional: Denies chills, Reports fatigue, Denies fever(s), Denies headache(s), Denies malaise and Denies weakness Eyes: Eyes: Denies blurry vision, Denies itchy eyes and Denies loss of vision ENT: Denies otalgia, Denies headache(s), Reports nasal congestion, Reports sinus pain, Reports sinus pressure and Reports sore throat Cardiovascular: Cardiovascular: Denies chest pain, Denies irregular heart rhy thm and Denies dyspnea Respiratory: Respiratory: Reports cough and Denies dyspnea Gastrointestinal: Gastrointestinal: Denies abdominal pain, Denies diarrhea, Denies nausea and Denies vomiting Musculoskeletal: Musculoskeletal: Denies back pain, Denies myalgias and Denies arthralgias Integumentary/Breasts: Skin/Breast: Denies pruritus and Denies rash Neurologic: Denies headache(s), Denies loss of vision and Denies weakness Psychiatric: Psychiatric: Reports no additional psychiatric complaints Endocrine: Endocrine: Denies fatigue Allergic/Immunologic: Allergic/Immunologic: Denies itchy eyes PMFSH Past Medical History Medical History DM2 (diabetes mellitus, type 2) Depression with anxiety Hyperlipidemia Hyperthyroidism CVA (cerebral vascular accident) Surgical History Surgical History No pertinent past surgical history Family History Family History Son No problems noted. Sibling Asthma Grandparent Cerebrovascular accident Sibling Hypertension Social History Social History Social History: The patient lives with his and he is disabled. He has 2 children. Patient quit smoking when he had his stroke in May. His is the durable power criminal attorney for healthcare and he is a full code. He denies any marijuana or drug use. Smoking packs per day: 1.5 Smoking cigarettes per day: 30.0 Years smoked: 35 Smoking pack-years: 52.50 Smoking status: Former smoker Tobacco type: cigarettes Alcohol intake: former Drinks per week: 5 Substance use type: does not use Living arrangements: with family Occupation/Education: other Gender identity (if verbalized by the patient): Male Spiritual care concerns: No Comments At time of signature, agree with nursing past medical, surgical, social and family history. There is no relevant family history pertinent to the presenting complaint. Exam Const: General: cooperative, healthy appearing, comfortable, no acute distress and well nourished Nutritional Appearance: well nourished Orientation/consciousness: patient oriented x3 Limitations: no limitations HENMT: Head: normal to inspection, normocephalic and atraumatic Ears: hearing grossly normal bilaterally, external ears normal, TM's normal bilaterally, EAC's normal and no periauricular adenopathy Face/Nose/Sinus: Normal external nose present, Abnormal mucous membranes and turbinates present erythematous bilateral and diffuse, normal facial exam, face symmetric and Facial tenderness on exam of face and sinuses Face and sinus: normal facial exam, face symmetric and sinus tenderness maxillary Mouth: Yes Normal oral and palatal mucosa present, Yes lip normal, Yes tongue normal, Yes Normal salivary glands and ducts present, Yes oropharynx normal and Yes moist mucous membranes Teeth and gingiva: dentition normal Throat: posterior oropharynx normal, tonsils normal and uvula midline Eyes: General: appearance normal, both eyes and all related structures Alignment and Position: alignment normal and position normal Periorbital: periorbital findings normal Eyelids: eyelids normal Pupils: Equal, round and reactive pupils present Neck: Neck: normal visual inspection, full ROM, no lymphadenopathy and supple Chest: Chest palpation & inspection: normal inspection of the chest and normal palpation of entire chest wall Resp: Effort & Inspection: normal respiratory effort and able to speak in complete sentences Auscultation: clear to auscultation bilaterally, no crackles, no rales, no rhonchi and no wheezes Cardio: Rate: regular rate Rhythm: regular rhythm Heart sounds: S1 normal heart sound present and S2 normal heart sound present GI: Inspection: normal to inspection Skin: General skin exam: normal color and no rashes or lesions noted Neuro: General: patient oriented x3 and moves all extremities Cranial nerves: Yes Equal, round and reactive pupils present Speech: normal speech Gait exam (Neuro): Normal gait present Extrem: General: normal to inspection, full ROM and no edema Psych: Appearance: grossly normal and well kempt Mental Status: mental status grossly normal Speech and movement: Normal speech and movement present Affect: normal affect Attitude: cooperative Thought process: Normal thought process present Course Course Emergency Course: Discharge instructions reviewed with patient, as well as provided in writing per nursing staff. The instructions also include specific and strict return/GO TO THE ER as well as f/u information. All questions have been answered, and the patient deny any further questions with discharge and discharge plan. Portions of this record may have been created with voice recognition software Level of Care: Express Care Visit Vital Signs Vital signs: Reviewed MDM - URI/Sore Throat MDM Narrative Medical decision making narrative: Pt well hydrated appearing, in no respiratory distress, hemodynamically stable. Recommend supportive care. The patient is stable at time of discharge the clinical impression was discussed and the patient was given the opportunity to ask questions, which were addressed as completely as possible given the information available at present. Anticipatory guidance and return to care precautions were discussed and the importance of primary care follow-up was stressed and encouraged. The patient voiced understanding of the plan, indications to return, and the need for follow-up. Exam findings show no acute concerns or changes Patient is appropriate for outpatient treatment and follow-up. Differential diagnosis considered: Watkins virus, strep pharyngitis, allergic rhinitis, upper respiratory tract infection, sinusitis, rhinosinusitis, nasopharyngitis. viral pharyngitis, otitis media, otitis externa, otitis effusion, foreign body, cerumen impaction, viral syndrome, and influenza.? Medical Records Attestation: I reviewed the patient's medical records. Discharge Plan Discharge Clinical Impression: Sinusitis Qualifiers: Sinusitis location: maxillary Chronicity: acute Recurrence: non-recurrent Qualified Code(s): J01.00 - Acute maxillary sinusitis, unspecified Patient Disposition: Home Condition: Stable Instructions: Sinusitis (ED) Additional Instructions: Take antibiotics as prescribed Symptomatic treatment of a sinus infection aims to relieve symptoms. These treatments do not shorten the duration of illness. Nonprescription pain medications, such as acetaminophen (eg, Tylenol) or ibuprofen (eg, Motrin, Advil), are recommended for pain. Flushing the nose and sinuses with a saline solution several times per day has been proven to decrease pain associated with congestion and shorten the duration of symptoms. Nasal steroids (such as Flonase, 2 sprays in each nostril daily) can help to reduce swelling inside the nose, usually within two to three days. These drugs have few side effects and relieve symptoms in most people. Oral decongestants (pseudoephedrine and phenylephrine) may be helpful if you have associated symptoms of ear pain or fullness. Nasal decongestant sprays, including oxymetazoline (Afrin) and phenylephrine (Asif-Synephrine), can be used to temporarily treat congestion. However, these sprays should not be used for more than two to three days due to the risk of rebound congestion (when the nose becomes congested constantly unless the medication is used repeatedly), possible addiction, and long-term consequences of frequent use, including persistent nasal dryness and crusting, which is very difficult to treat once it has developed. Medications to thin secretions (such as guaifenesin) may help to clear mucus. Please follow-up with your primary care doctor in the next 1-2 days. If you cannot follow-up with your primary care doctor please go to the ED for any urgent issues. If you have any worsening of symptoms or any other concerns please go to the ED immediately. Your blood pressure was elevated above 120/80 today at Urgent Care. This puts you above the threshold for follow up visit with a primary care provider. High blood pressure does not usually cause any symptoms, however it may lead to kidney failure, stroke, heart disease just to name a few if untreated . Many people are anxious when seeing a provider or nurse. As a result, you are not diagnosed with hypertension at this time unless your blood pressure is persistently high at two office visits at least one week apart. Some things that can help lower blood pressure are lifestyle modifications, such as light exercise, decreased salt in diet, and weight loss. It is important to follow up with a PCP about this within 1 week. Patient Language: Paragu[place] Prescriptions: New fluticasone propionate [Flonase Allergy Relief] 50 mcg/actuation spray,suspension 1 spray intranasal DAILY Qty: 16 0RF Rx Instructions: administer into each nostril loratadine 10 mg tablet 10 mg PO DAILY Qty: 30 0RF amoxicillin-pot clavulanate 875-125 mg tablet 1 tablet PO Q12H 10 Days Qty: 20 0RF No Action montelukast 10 mg tablet 10 mg PO DAILY atorvastatin 40 mg tablet 40 mg PO DAILY metformin 500 mg tablet 500 mg PO BID trazodone 100 mg tablet 50 mg PO DAILY methimazole 5 mg tablet 10 mg PO TID aspirin 81 mg tablet,chewable 81 mg PO DAILY albuterol sulfate 90 mcg/actuation HFA aerosol inhaler 2 puff INHALATION Q4H PRN (Reason: Shortness Of Breath) risperidone 1 mg tablet 1 mg PO HS mirtazapine 7.5 mg tablet 7.5 mg PO HS triamcinolone acetonide 0.1 % ointment 1 applic TOPICAL DAILY tadalafil 20 mg tablet 20 mg PO DAILY Eliquis 5 mg tablet 5 mg PO BID fluticasone propionate [Flonase Allergy Relief] 50 mcg/actuation spray,suspension 1 spray intranasal BID Qty: 16 0RF Rx Instructions: administer into each nostril Follow-up/Referrals: Cole,MD Maureen [Primary Care Provider] - 3 Days Time of Disposition: 13:20
[2025-02-08 12:51] VITALS: BP 162/86; PULSE 80; RESP 18; TEMP 36.9; O2SAT 98
== END 2025-02-08 13:27 | disposition home or self-care (01) ==
PROVIDERS: Emergency Provider Nurse Practitioner Family; PCP Internal Medicine
DX: J01.00 Acute maxillary sinusitis, unspecified (principal); Z87.891 Personal history of nicotine dependence; E11.9 Type 2 diabetes mellitus without complications; Z79.84 Long term (current) use of oral hypoglycemic drugs; E78.5 Hyperlipidemia, unspecified; E05.90 Thyrotoxicosis, unspecified without thyrotoxic crisis or storm; Z86.73 Personal history of transient ischemic attack (TIA), and cerebral infarction without residual deficits; Z79.82 Long term (current) use of aspirin; Z79.01 Long term (current) use of anticoagulants
CPT/HCPCS: 99213; G0463